=== PATIENT | female | born 1945 | race Caucasian/White ===

== ENCOUNTER 2025-04-12 22:17 | Inpatient (IN) | payer MEDICARE ==
[~2025-04-12] VITALS: Ht 152.4 cm; Wt 70.5 kg
[2025-04-13] VITALS (8 sets, daily range): BP systolic 93–170; BP diastolic 57–93; TEMP 97.3–97.9; O2SAT 90–99
[2025-04-13] MEDS: UNRESOLVED CLARIFICATION ENTRY XX STA (00:19)
[2025-04-13] MEDS: MORPHINE 4 MG/ML 1 ML VIAL IV PRN (00:43)
[2025-04-13 01:01] LABS: BASO # 0.1 10^3/uL (0.0-0.2); BASO % 0.3 % (0.0-1.0); EOS # 0.0 10^3/uL (0.0-0.5); EOS % 0.1 % (0.0-3.0); LYMPH # 1.0 10^3/uL (1.5-5.0); LYMPH % 5.5 % (24.0-44.0); MONO # 1.2 10^3/uL (0.0-0.8); MONO % 6.6 % (2.0-8.0); NEUTROPHILS # 15.8 10^3/uL (1.5-8.5); NEUTROPHILS % 86.7 % (36.0-66.0); PLATELET COUNT, AUTOMATED 229 10^3/uL (150-450)
[2025-04-13 01:18] LABS: CALCIUM LEVEL 8.8 MG/DL (8.3-10.6); CARBON DIOXIDE LEVEL 28 MMOL/L (20-31); CHLORIDE LEVEL 102 MMOL/L (98-107); CREATININE FOR GFR 0.53 MG/DL (0.55-1.30); GLOMERULAR FILTRATION RATE > 90.0 (>32); POTASSIUM SERUM 3.7 MMOL/L (3.5-5.1); SODIUM LEVEL 136 MMOL/L (136-145)
[2025-04-13 01:22] LABS: INR 1.1
[2025-04-13] MEDS: LABETALOL 100 MG/20 ML VIAL IV STA (02:39)
[2025-04-13] MEDS: hydrALAZINE 20 MG/ML 1 ML VIAL IV ONE (02:52)
[2025-04-13] MEDS ORDERED: ONDANSETRON 4MG 2ML VIAL IV PRN ×3 (03:00→11:40)
[2025-04-13] MEDS ORDERED: MOM 30 ML SUSPENSION UDC PO PRN (03:00)
[2025-04-13] MEDS ORDERED: KETOROLAC 30 MG/ML 1 ML VIAL IV PRN (03:00)
[2025-04-13] MEDS ORDERED: MORPHINE 4 MG/ML 1 ML VIAL IV PRN (03:00)
[2025-04-13] MEDS ORDERED: ELIQ5TAB PO (03:06)
[2025-04-13] MEDS ORDERED: LOPR1TAB6 PO (03:06)
[2025-04-13] MEDS ORDERED: SYNT137T7 PO (03:06)
[2025-04-13] MEDS ORDERED: ATOR1TAB19 PO (03:06)
[2025-04-13] MEDS ORDERED: HYDR12.55 PO (03:06)
[2025-04-13] MEDS ORDERED: BUPR75TA5 PO (03:06)
[2025-04-13] MEDS ORDERED: CARB25TA18 PO (03:06)
[2025-04-13] MEDS: D5W/LR 1,000 ML IV SCH (04:47)
[2025-04-13] MEDS ORDERED: B-12100010 PO (06:46)
[2025-04-13] MEDS ORDERED: HOME MED LIST COMPLETE! XX SCH (06:50)
[2025-04-13] MEDS ORDERED: NALOXONE INJ 0.4 MG/1 ML VIAL IV PRN (07:15)
[2025-04-13] MEDS: LR 1,000 ML IV SCH (08:35)
[2025-04-13] MEDS ORDERED: HYDROMORPHONE HCL 0.5 MG/0.5 ML SYRINGE IV PRN ×2 (08:35→11:40)
[2025-04-13] MEDS: LEVOTHYROXINE 137 MCG TABLET (0.137 MG) PO SCH (09:26)
[2025-04-13] MEDS: DOCUSATE SODIUM 100 MG CAPSULE PO SCH (09:26)
[2025-04-13] MEDS: PANTOPRAZOLE 40MG VIAL IV SCH (09:27)
[2025-04-13] MEDS: CARBIDOPA/LEVODOPA 25 MG/100 MG PO SCH (09:27)
[2025-04-13] MEDS: METOPROLOL TART 25 MG TABLET PO SCH ×2 (09:48→12:47)
[2025-04-13] MEDS ORDERED: ROCURONIUM BROMIDE 50MG/5ML VIAL As Ordered ONE (10:31)
[2025-04-13] MEDS ORDERED: LIDOCAINE 2% 100 MG/5 ML SDV (FOR ANES.) As Ordered ONE (10:31)
[2025-04-13] MEDS ORDERED: PHENYLephrine 500MCG 5ML (100MCG/ML) SYRINGE As Ordered ONE (10:46)
[2025-04-13] MEDS: TRANEXAMIC ACID 100 MG/ML 10ML VIAL As Ordered ONE (11:00)
[2025-04-13] MEDS ORDERED: ONDANSETRON 4MG 2ML VIAL As Ordered ONE (11:17)
[2025-04-13] MEDS ORDERED: SUGAMMADEX SODIUM 200 MG/2 ML VIAL As Ordered ONE (11:17)
[2025-04-13] MEDS ORDERED: LR 1,000 ML IV SCH (11:40)
[2025-04-13] MEDS ORDERED: LABETALOL 100 MG/20 ML VIAL IV PRN (11:55)
[2025-04-13] MEDS: **hydrALAZINE HCL** 25 MG TAB PO SCH (14:46)
[2025-04-13] MEDS: ceFAZolin SODIUM 2 GM in DEXTROSE 5% (D5W) ADV/MINI-BAG 50 ML IV SCH (18:22)
[2025-04-13] MEDS: amLODIPine 5 MG TAB PO SCH (20:25)
[2025-04-13] MEDS: PERCOCET 5MG/325MG TAB PO PRN (20:30)
[2025-04-13] MEDS: diphenhydrAMINE 50 MG/ML VIAL IM ONE (23:35)
[2025-04-14 06:38] VITALS: BP 120/72; TEMP 97.2; O2SAT 94
[2025-04-14] MEDS: PERCOCET 5MG/325MG TAB PO PRN (08:18)
[2025-04-14] MEDS ORDERED: APIXABAN 5 MG TAB PO SCH (09:00)
[2025-04-14] MEDS: APIXABAN 5 MG TAB PO SCH (10:20)
[2025-04-14 14:00] VITALS: BP 120/62; TEMP 97.7; O2SAT 91
[2025-04-14] MEDS: ACETAMINOPHEN 325 MG TAB PO PRN (16:45)
[2025-04-14 19:40] VITALS: BP 127/68; TEMP 97.9; O2SAT 92
[2025-04-14 20:09] VITALS: BP 132/67; TEMP 97.9; O2SAT 94
[2025-04-15 00:30] VITALS: BP 152/70; TEMP 97.7; O2SAT 93
[2025-04-15 06:45] VITALS: BP 155/72; TEMP 97.7; O2SAT 93
[2025-04-15] MEDS: CARBIDOPA/LEVODOPA 25 MG/100 MG PO SCH (12:30)
[2025-04-15 14:00] VITALS: BP 118/68; TEMP 97.6; O2SAT 98
[2025-04-15 20:20] VITALS: BP 155/67; TEMP 97.6; O2SAT 97
[2025-04-15] MEDS: RAMELTEON 8 MG TAB PO PRN (23:21)
[2025-04-16 04:42] VITALS: BP 136/96; TEMP 97.3; O2SAT 96
[2025-04-16 14:00] VITALS: BP 150/74; TEMP 97.5; O2SAT 98
[2025-04-16] MEDS ORDERED: SENNA 8.6 MG TAB PO PRN (20:30)
[2025-04-16] MEDS ORDERED: BISACODYL 10 MG SUPP PR PRN (20:30)
[2025-04-16] MEDS ORDERED: MIRALAX *UNIT DOSE* 17 GM PACKET PO PRN (20:30)
[2025-04-16] MEDS ORDERED: OXYC1TAB23 PO (20:34)
[2025-04-16] MEDS ORDERED: METO1TAB7 PO (20:34)
[2025-04-16] MEDS ORDERED: AMLO1TAB25 PO (20:34)
[2025-04-16] MEDS ORDERED: ACET-683 PO (20:34)
[2025-04-16] MEDS ORDERED: DULC10SU2 PR (20:35)
[2025-04-16] MEDS ORDERED: MIRA3350 PO (20:35)
[2025-04-16] MEDS ORDERED: SENO8.6T10 PO (20:35)
[2025-04-16 21:39] VITALS: BP 167/81; TEMP 97.7; O2SAT 92
[2025-04-16] MEDS: METOPROLOL SUCC. 50 MG *XL* TAB PO SCH (22:00)
[2025-04-16] MEDS: ATORVASTATIN 10 MG TAB PO SCH (22:02)
[2025-04-17] VITALS: BP 167/81; TEMP 97.7; O2SAT 92
[2025-04-17 04:46] LABS: VENOUS BASE EXCESS 1.7 (-2.0-2.0); VENOUS HCO3 24.9 MMOL/L (23.0-27.0); VENOUS O2 SATURATION 97.8 % (60.0-80.0); VENOUS PARTIAL PRESSURE CO2 34.6 mmHg (38.0-50.0); VENOUS PARTIAL PRESSURE O2 107.1 mmHg (30.0-50.0); VENOUS PH 7.475 UNITS (7.330-7.430); VENOUS STANDARD HCO3 26.0 MMOL/L; VENOUS TOTAL CO2 26.0 MMOL/L (24.0-28.0)
[2025-04-17 04:51] LABS: BASO # 0.1 10^3/uL (0.0-0.2); BASO % 0.5 % (0.0-1.0); EOS # 0.1 10^3/uL (0.0-0.5); EOS % 0.8 % (0.0-3.0); LYMPH # 1.3 10^3/uL (1.5-5.0); LYMPH % 14.3 % (24.0-44.0); MONO # 1.1 10^3/uL (0.0-0.8); MONO % 11.7 % (2.0-8.0); NEUTROPHILS # 6.7 10^3/uL (1.5-8.5); NEUTROPHILS % 71.7 % (36.0-66.0); PLATELET COUNT, AUTOMATED 230 10^3/uL (150-450)
[2025-04-17 05:19] LABS: ALT/SGPT 28 U/L (7.0-40); AST/SGOT 38 U/L (<34); CALCIUM LEVEL 8.4 MG/DL (8.3-10.6); CARBON DIOXIDE LEVEL 27 MMOL/L (20-31); CHLORIDE LEVEL 103 MMOL/L (98-107); CREATININE FOR GFR 0.50 MG/DL (0.55-1.30); GLOMERULAR FILTRATION RATE > 90.0 (>32); MAGNESIUM LEVEL 2.1 MG/DL (1.8-2.4); POTASSIUM SERUM 3.4 MMOL/L (3.5-5.1); SODIUM LEVEL 140 MMOL/L (136-145)
[2025-04-17 06:27] VITALS: BP 150/70; TEMP 97; O2SAT 98
[2025-04-17] MEDS ORDERED: METO1TAB33 PO (06:47)
[2025-04-17] MEDS ORDERED: METO1TAB7 PO (06:48)
[2025-04-17] MEDS: POTASSIUM CHLORIDE 10MEQ SR TABLET PO ONE (06:59)
[2025-04-17] MEDS: METOPROLOL SUCC. 100 MG *XL* TAB PO ONE (07:00)
[2025-04-17] MEDS: DIGOXIN 0.25 MG TAB PO STA (07:00)
[2025-04-17] MEDS: LACTULOSE 20 GM/30 ML SYRUP UDC PO SCH ×2 (07:16→12:32)
[2025-04-17] MEDS ORDERED: LACT20EL PO (07:25)
[2025-04-17] MEDS: LACTULOSE 20 GM/30 ML SYRUP UDC PO ONE (08:40)
[2025-04-17] MEDS: CYANOCOBALAMIN 500 MCG TAB PO SCH (08:43)
[2025-04-17] MEDS: amLODIPine 10 MG TAB PO SCH (08:44)
[2025-04-18 07:01] VITALS: BP 155/75; TEMP 97.6
[2025-04-18 08:12] VITALS: BP 155/75
[2025-04-18 08:13] VITALS: BP 132/58; TEMP 98.3; O2SAT 95
== END 2025-04-18 08:34 | DRG 480 ==
LOC: M ED 22:17 → M ED INP 04-13 08:31 → M MS5PR 04-13 12:40
PROVIDERS: ADMIT General Practice; ATTEND General Practice
PROC: 0SSB04Z Reposition Left Hip Joint with Internal Fixation Device, Open Approach (ICD-10-PCS; principal; 2025-04-13 10:00)
DX: S72.045A Nondisplaced fracture of base of neck of left femur, initial encounter for closed fracture (principal); G93.41 Metabolic encephalopathy; I10 Essential (primary) hypertension; E78.5 Hyperlipidemia, unspecified; I48.91 Unspecified atrial fibrillation; F03.90 Unspecified dementia, unspecified severity, without behavioral disturbance, psychotic disturbance, mood disturbance, and anxiety; K76.82 Hepatic encephalopathy; I16.0 Hypertensive urgency; M81.0 Age-related osteoporosis without current pathological fracture; E03.9 Hypothyroidism, unspecified; G20.A1 Parkinson's disease without dyskinesia, without mention of fluctuations; W19.XXXA Unspecified fall, initial encounter; Y92.9 Unspecified place or not applicable; Z79.01 Long term (current) use of anticoagulants; Z79.890 Hormone replacement therapy; Z79.899 Other long term (current) drug therapy; Z88.0 Allergy status to penicillin; Z88.8 Allergy status to other drugs, medicaments and biological substances

== ENCOUNTER → 2025-05-15 | Outpatient (CLI) | payer MEDICARE ==
[~2025-05-15] MED LIST: ACET-683 PO; AMLO1TAB25 PO; ATOR1TAB19 PO; B-12100010 PO; BUPR75TA5 PO; CARB25TA18 PO; DULC10SU2 PR; ELIQ5TAB PO; HYDR12.55 PO; LACT20EL PO; LOPR1TAB6 PO; METO1TAB33 PO; METO1TAB7 PO; MIRA3350 PO; OXYC1TAB23 PO; SENO8.6T10 PO; SYNT137T7 PO
== END ==
LOC: M SOG 07:34
PROVIDERS: ATTEND Physician Assistant
DX: S72.142A Displaced intertrochanteric fracture of left femur, initial encounter for closed fracture (principal)